=== PATIENT | male | born 1940 | race Caucasian/White ===

== ENCOUNTER 2020-10-04 14:28 | Outpatient (CLI) | payer MEDICARE, SELFPAY | END 2020-10-04 14:29 | disposition home or self-care (01) | LOC: ANHCOVIDVC 14:28 | PROVIDERS: PCP Internal Medicine; Visit Provider Internal Medicine | DX: Z23 Encounter for immunization (principal) | CPT/HCPCS: 0001A; 91300 ==

== ENCOUNTER 2020-10-25 14:27 | Outpatient (CLI) | payer MEDICARE, SELFPAY | END 2020-10-25 14:28 | disposition home or self-care (01) | LOC: ANHCOVIDVC 14:27 | PROVIDERS: PCP Internal Medicine | DX: Z23 Encounter for immunization (principal) | CPT/HCPCS: 0002A; 91300 ==

== ENCOUNTER 2020-11-23 03:55 | Observation (INO) | payer MEDICARE, SELFPAY ==
--- NOTE | ~2020-11-23 | US_ITS ---
EXAMINATION: US renal BI DATE: 11/24/2020 14:54 INDICATION: Bilateral hydronephrosis. TECHNIQUE: Multiple ultrasound grayscale images of the kidneys were obtained. COMPARISON: CT abdomen and pelvis 11/23/2020 FINDINGS: The right kidney measures 9.4 x 6.2 x 4.5 cm. The left kidney measures 12.8 x 4.6 x 4.9 cm. The kidne ys demonstrate normal parenchymal echogenicity. There is a 1.3 cm cyst in left kidney. There is no hy dronephrosis. The bladder is decompressed by a Strickland catheter. The prostate is severely enlarged. IMPRESSION: 1. Normal kidney sizes. No hydronephrosis. 2. Severely enlarged prostate. Reviewed, dictated and finalized at location B.
--- NOTE | ~2020-11-23 | CT_ITS ---
EXAMINATION: CT abdomen pelvis wo con DATE: 11/23/2020 06:11 INDICATION: Hematuria. Leukocytosis. TECHNIQUE: Computed tomography (CT) of the abdomen and pelvis was performed without intravenous contr ast. Automated exposure control and iterative reconstruction technique were employed. Exam dose: 382 .82 mGy-cm total exam DLP. COMPARISON: 11/13/2013 CT abdomen pelvis FINDINGS: Mild bilateral predominantly dependent lower lobe atelectasis. Normal heart size. Mild pericardial effusion. No pleural effusion. There is mild to moderate pneumoperitoneum. The greatest concentration of free air is seen adjacent t o distal small bowel segments in the right lower quadrant there are multiple small bowel diverticula. There is fluid distention and there are air-fluid levels of the proximal to mid small bowel. No abnor mal dilatation of small or large bowel. 1.9 cm and 9 mm left hepatic cysts. At least one or 2 additional much smaller hepatic cysts are sugge sted. The gallbladder is present. No gallbladder wall thickening or pericholecystic fluid or fat stranding. No bile duct or pancreatic duct dilatation. No pancreatic mass lesion, calcification or ductal dilat ation. There are numerous splenic calcified granulomas in one hepatic calcified granuloma, consistent with o ld granulomatous disease. No splenomegaly. Normal morphology of the adrenal glands. 13 mm probable left renal cyst. There is atherosclerotic calcification of the abdominal aorta but no aneurysm. No intraperitoneal or retroperitoneal or pelvic mass lesion or adenopathy or ascites. 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 Status post appendectomy. Extensive diverticulosis of left and right colon; no CT evidence of diverticulitis is detected. There is severe prostate enlargement. There is a Strickland catheter within the evacuated urinary bladder with evidence of bladder wall thickening likely secondary to bladder outlet obstruction. There is ass ociated mild bilateral hydronephrosis without evidence of urinary tract calculi. Mild fat stranding around the bladder may be due to cystitis; clinical correlation is advised. IMPRESSION: Diverticulosis of the small bowel and colon Mild to moderate pneumoperitoneum Hepatic cysts Calcified granulomas of liver and spleen 15 mm probable left renal cysts Status post appendectomy Severe prostate enlargement with associated bladder wall thickening and mild bilateral hydronephrosis There is diffuse osteopenia. There is 4 mm retrolisthesis at L3-4. There is multilevel degenerative d isc disease of lumbar spine, most prominent at L4-5. Reviewed, dictated and finalized at [facility]. Reviewed, dictated and finalized at location A. IMPRESSION: Diverticulosis of the small bowel and colon Mild to moderate pneumoperitoneum Hepatic cysts Calcified granulomas of liver and spleen 15 mm probable left renal cysts Status post appendectomy Severe prostate enlargement with associated bladder wall thickening and mild bi lateral hydronephrosis There is diffuse osteopenia. There is 4 mm retrolisthesis at L3-4. There is mul tilevel degenerative disc disease of lumbar spine, most prominent at L4-5.
[2020-11-23 04:02] VITALS: BP 161/81; PULSE 73; RESP 18; TEMP 36.7; O2SAT 97
--- NOTE | 2020-11-23 04:12 | ED.MALEGU ---
HPI - Male Genitourinary General Chief complaint: Urogenital-Male Stated complaint: Unable to urinate Time Seen by Provider: 11/23/20 03:59 Source: patient Mode of arrival: ambulatory Limitations: no limitations History of Present Illness HPI Narrative: This is an 80 year old male with history of hypertension and hyperlipidemia who presents for evaluation of difficulty urinating. He states he started having dysuria and decreased urination 4 days ago. Last night he started having more difficulty. He last urinated around 9 pm last night, and he states it was very little. He has penile pain , lower abdominal and lower back pain that started tonight. He reports chills with nausea and vomiting yesterday morning. He denies history of an enlarged prostate. He denies similar episodes in the past. Related Data Home Medications Medication Instructions Recorded Confirmed cyanocobalamin (vitamin B-12) 1,000 mcg PO DAILY 07/15/19 07/22/20 1,000 mcg capsule omega 2-jvm-iyp-fish oil 1,000 mg 2 cap PO DAILY cap 07/15/19 07/22/20 (120 mg-180 mg) capsule Allergies Allergy/AdvReac Type Severity Reaction Status Date / Time No Known Allergies Allergy Verified 11/23/20 03:55 Review of Systems Review of Systems: All systems reviewed & are unremarkable except as noted in HPI and below Constitutional: Constitutional: Reports chills Gastrointestinal: Gastrointestinal: Reports abdominal pain, Reports nausea and Reports vomiting Genitourinary: Genitourinary: Denies hematuria, Reports oliguria, Reports dysuria and Reports urinary frequency Musculoskeletal: Musculoskeletal: Reports back pain PMFSH Past Medical History Medical History (Updated 11/23/20 @ 07:30 by Eri Kim MD) Essential (primary) hypertension Mixed hyperlipidemia Surgical History Surgical History (Updated 11/23/20 @ 04:12 by Eri Kim MD) History of appendectomy Family History Family History (Updated 04/01/14 @ 07:13 by DOCTOR UNKNOWN) Mother Cerebrovascular accident Father Family history of coronary artery disease, Onset Age: 87 Social History Social History Smoking status: Never smoker Alcohol intake: never Exam Const: General: no acute distress and alert Eyes: EOM: EOMs intact bilaterally Resp: Effort & Inspection: normal respiratory effort and no retractions Auscultation: clear to auscultation bilaterally Cardio: Rate: regular rate Rhythm: regular rhythm Heart sounds: no murmurs GI: Inspection: distended GI Palp: Yes Soft to palpation, Yes Tenderness to palpation present (GI) (suprapubic) and No Guarding due to palpation present (GI) Auscultation: normal bowel sounds : Penis: Yes circumcised Scrotum: scrotum normal Skin: General skin exam: normal color Rashes: no rashes Course Reevaluation(s) Reevaluation #1: Patient has palm catheter in place. He denies any pain or difficulty. He states he feels better. Patient has elevated wbc so will perform CT to rule out infectious or surgical issue. Date: 11/23/20 Time: 05:52 Consultations Consultation #1: Dr Murdock came down to ER to evaluate patient for possible bowel perforation. He states to have patient admitted to hospitalist with [facility]. They will follow patient as consult. No surgical intervention needed at this time. Date: 11/23/20 Time: 07:27 Consultation #2: I discussed case and Dr. Godwin accepts patient to hospitalist service. Date: 11/23/20 Time: 07:37 Vital Signs Vital signs: Vital Signs Temperature 98.1 F 11/23/20 04:02 Pulse Rate 73 11/23/20 04:02 Respiratory Rate 18 11/23/20 04:02 Blood Pressure 161/81 H 11/23/20 04:02 Pulse Oximetry 97 11/23/20 04:02 Temperature 98.1 F 11/23/20 04:02 Pulse Rate 65 11/23/20 07:12 Respiratory Rate 16 11/23/20 07:12 Blood Pressure 143/68 H 11/23/20 07:12 Pulse Oximetry 100 11/23/20 07:12 [facility] - Male Genitourinary Medical Records Attestation: I
[2020-11-23 04:40] LABS: Basophils Percent Auto 0.3 % (0.2-1.2); Eosinophils Absolute Auto 0.2 K/mm3 (0-0.3); Eosinophils Percent Auto 1.2 % (0-4.4); Hematocrit 43.3 % (42.0-52.0); Hemoglobin 14.2 g/dL (14.0-18.0); Immature Granulocyte Absolute 0.04 K/mm3 (0.00-0.031); Immature Granulocyte Percent A 0.3 % (0-0.5); Lymphocytes Absolute Auto 2.82 K/mm3 (0.9-3.2); Lymphocytes Percent Auto 22.1 % (18.3-44.2); Mean Corpuscular HGB Conc 32.8 g/dl (32-36); Mean Corpuscular Hemoglobin 28.1 pg (26-34); Mean Corpuscular Volume 85.7 fl (80-100); Mean Platelet Volume 11.8 fl (7.4-10.4); Monocytes Absolute Auto 0.6 K/mm3 (0.1-0.6); Monocytes Percent Auto 4.8 % (2.6-8.5); Neutrophils Absolute Auto 9.1 K/mm3 (1.3-6.7); Neutrophils Percent Auto 71.3 % (45.5-73.1); Platelet Count Result 270 k/mm3 (150-375); Red Blood Count 5.05 M/mm3 (4.6-6.20); Red Cell Distribution Width 13.6 % (11.5-14.5); White Blood Count 12.8 K/mm3 (4.5-10.0)
[2020-11-23 04:51] LABS: Alanine Aminotransferase 23 U/L (4-50); Alkaline Phosphatase 81 U/L (38-126); Anion Gap 7 mmol/L (8-16); Aspartate Amino Transferase 29 U/L (17-59); Bilirubin,Total 0.5 mg/dL (0.2-1.3); Blood Urea Nitrogen 18 mg/dL (9-20); Calcium 9.4 mg/dL (8.4-10.2); Carbon Dioxide 28 mmol/L (22-30); Chloride 102 mmol/L (98-107); Estimated CRCL calculation 44 ml/min; Estimated Glomerular Filt Rate 58; Glucose 101 mg/dL (75-110); Sodium 137 mmol/L (137-145)
[2020-11-23 04:52] LABS: Add Urine Microscopic? YES; Appearance Urine Clear (Clear); Bilirubin Urine Negative (Negative); Blood Urine 1+ (Negative); Color Urine Yellow (Yellow); Glucose Urine UA Negative (Negative); Ketones Urine Negative (Negative); Leukocyte Esterase Ur Negative LEU/UL (Negative); Mucus Urine Rare /lpf; Nitrate Urine Negative (Negative); Protein Urine Negative (Negative); Specific Grav Ur 1.013 (1.001-1.035); Urobilinogen Urine Negative mg/dL (<2.0); WBC Urine 0-3 /hpf
[2020-11-23] MEDS: TAMSULOSIN HCL 0.4 MG CAPSULE PO (05:14)
[2020-11-23 07:12] VITALS: BP 143/68; PULSE 65; RESP 16; O2SAT 100
--- NOTE | 2020-11-23 07:15 | PC.NURSE ---
Took over care of pt at this time.
[2020-11-23 09:10] VITALS: BP 138/78; PULSE 62; RESP 18; TEMP 36.7; O2SAT 97
--- NOTE | 2020-11-23 09:28 | PM.CNGS ---
Assessment and Plan Assessment and plan (1) Pneumoperitoneum of unknown etiology: Code(s): K66.8 - Other specified disorders of peritoneum Status: Acute Assessment and Plan: CT scan reviewed thoroughly with the radiologist this morning. Etiology of his pneumoperitoneum is unclear. There is mild pneumoperitoneum with 3 separate focal areas of free air in the mesenteric fat around small bowel segments. The small bowel appears decompressed in these areas and there is no wall thickening, therefore it is difficult to discern a focal area of pneumatosis or obvious disruption in the small bowel wall. The area of concern on the virtual radiologist reading could be intraluminal or extraluminal gas, rather than focal pneumatosis or a hole in the bowel. He does also have evidence of scattered small and large bowel diverticulum on the CT. Clinically, the patient's abdominal exam is completely benign. He had mild leukocytosis in the setting of his urinary retention. He remains hemodynamically stable this morning. I have discussed the case with Dr. Murdock. We will continue to closely monitor the patient today and continue with broad-spectrum IV antibiotics. We will keep him NPO for now with IV fluids and potentially allow him to try clear liquids later this afternoon if his exam remains benign. Will plan to repeat labs tomorrow morning and monitor him with serial abdominal exams. Thank you for allowing us to see the patient in consultation and we will continue to follow along with you. (2) Acute urinary retention: Code(s): R33.8 - Other retention of urine Status: Acute Assessment and Plan: This is his reason for presentation to the ER. Symptoms resolved after Strickland catheter was placed. Management per hospitalist. (3) Enlarged prostate: Code(s): N40.0 - Benign prostatic hyperplasia without lower urinary tract symptoms Status: Acute Assessment and Plan: May benefit from Flomax. Management per hospitalist. (4) Essential (primary) hypertension: Code(s): I10 - Essential (primary) hypertension Status: Acute Assessment and Plan: Management per hospitalist. Additional Plan I have discussed the patient's case and plan of care with Dr. Murdock. History of Present Illness Consult details Consult date: 11/23/20 Reason for consult: other (Pneumoperitoneum found incidentally on CT) Requesting physician: Eri Kim MD Narrative: This is an 80-year-old male with a history of hypertension, who presented to the emergency department early this morning with difficulty urinating. He reports some dysuria and decreased urination over the past few days. Last night he was unable to urinate and had penile and lower back pain. Therefore, he presented to the ER for evaluation. He reports also 1 episode of vomiting yesterday morning while straining to urinate. Otherwise, he has been tolerating a diet without any nausea or vomiting. In the ER, a Strickland catheter was placed for urinary retention and the patient felt much better. A CT scan of the abdomen and pelvis was performed to rule out infection or surgical issue. This CT incidentally found mild pneumoperitoneum and the virtual radiologist reading suggested regional free air around a segment of small bowel with possible focal wall pneumatosis and possible disruption in the small bowel wall. The patient is hemodynamically stable in the ER and his labs showed a white blood cell count of 12,000 on initial presentation with the urinary retention. Otherwise, labs were unremarkable. Our service was then called by the ED physician and the patient was seen by Dr. Murdock in the ER. He is being admitted to the hospitalist service and was made NPO. He was started on broad-spectrum IV antibiotics. I am now seeing the patient independently on the medical floor. He denies any abdominal pain, bloating, or nausea at this time. He reports flatus and 2 good bowel move
--- NOTE | 2020-11-23 10:27 | ADMGEN ---
This patient, Robin Mcduffie, was admitted to [facility] Surg Room 317-01. Patient/family oriented to hospital policies and general routines including ID bracelet, bed and alarms, visiting hours, pain management, procedures, bathroom and other care routines, personal items, smoking policy, room service/diet, and visiting hours. Information on how to activate the Rapid Response Team has been discussed. Patient/Family are encouraged to report perceived risks to care and to ask questions if they do not understand what they are told or what they should do.
[2020-11-23] MEDS: SODIUM CHLORIDE 0.9% IV 1,000 ML 125 ML IV CONT (11:16)
--- NOTE | 2020-11-23 13:00 | PM.IMHP ---
H&P: HPI History of Present Illness Date/Time: 11/23/20 13:00 Chief Complaint: Difficulties urinating. Narrative: This is a relatively healthy 80-year-old male with with hypertension and hyperlipidemia presented to the emergency department earlier today from home for evaluation of difficulties urinating. About 4 days ago he noticed that he was having the urge to urinate more often but was urinating less urine each time. Last evening he had increasing difficulties urinating, passing only a small amount of urine at approximately 21:00 last night. Since that time he has been unable to urinate and reports discomfort in his low back and suprapubic region. Additionally he has nausea with 1 episode of emesis yesterday morning. His low back in suprapubic discomfort resolved once the Strickland catheter was inserted. He has never had similar episodes in the past. No fever but he had some chills yesterday. No hematuria. No known history of BPH. He has not had any falls or back injuries. Review of Systems Review of Systems: Narrative: Twelve systems were reviewed with pertinent positives and negatives as per HPI. No fever or sweats. Denies recent cold and flu symptoms. No chest pain or shortness of breath. He is not having any abdominal pain at this time. No diarrhea. Weight has remained stable. No history of malignancy. Except as documented, all other systems reviewed and are negative. [facility] Past Medical History Medical History (Updated 11/23/20 @ 14:10 by Sobia Rhodes PA-C) Diverticulitis Essential hypertension Mixed hyperlipidemia Surgical History Surgical History (Updated 11/23/20 @ 21:43 by Sobia Rhodes PA-C) History of appendectomy (~11/2013) Perforated appendicitis with intraabdominal abscess requiring drain. History of facial surgery Reconstruction of numerous fractures sustained in a fall on the ice. History of hemorrhoidectomy Family History Family History Mother Cerebrovascular accident Father Family history of coronary artery disease, Onset Age: 87 Social History Social History (Updated 11/23/20 @ 14:10 by Sobia Rhodes PA-C) Social History: Surrogate decision maker: Francisca Mcduffie, . Code status: Full code. Smoking status: Never smoker Second hand tobacco smoke exposure: No Alcohol intake: never Substance use: never Additional living arrangements comments: Patient lives in [place] with his . Occupation/Education: retired Additional occupation/education comments: Retired from [employer]. Gender identity (if verbalized by the patient): Male Spiritual care concerns: No Meds Home Medications and Allergies Home Medications Medication Instructions Recorded Confirmed Type cyanocobalamin (vitamin B-12) 1,000 mcg PO DAILY 07/15/19 11/23/20 History 1,000 mcg capsule omega 9-nrl-ipy-fish oil 1,000 mg 2 cap PO DAILY cap 07/15/19 11/23/20 History (120 mg-180 mg) capsule amlodipine 5 mg PO DAILY 11/23/20 11/23/20 History pravastatin 40 mg PO DAILY 11/23/20 11/23/20 History Allergies Allergy/AdvReac Type Severity Reaction Status Date / Time No Known Allergies Allergy Verified 11/23/20 03:55 Vital Signs Vital Signs - 24 hr 11/23/20 04:02 11/23/20 07:12 11/23/20 09:10 Temperature 98.1 F 98.0 F Pulse Rate 73 65 62 Respiratory Rate 18 16 18 Blood Pressure 161/81 H 143/68 H 138/78 Pulse Oximetry 97 100 97 Exam Narrative: Exam Narrative: General: Well-developed elderly male sitting up in bed no distress. Weight: 77.11 kilograms. BMI: 24.4. HEENT: Normocephalic, atraumatic. PERRL, EOMI. Sclerae anicteric. Oral mucosa moist. Oropharynx clear. Neck: Supple. Respiratory: Lungs are clear to auscultation bilaterally. Cardiovascular: Regular rate and rhythm with S1-S2. Gastrointestinal: Abdomen is soft, nontender, and nondistended with positive bow
[2020-11-23 14:00] VITALS: BP 120/71; PULSE 66; RESP 16; TEMP 37.1; O2SAT 92
[2020-11-23 21:40] VITALS: BP 128/81; PULSE 92; RESP 18; TEMP 37.2; O2SAT 93
[2020-11-24 05:38] VITALS: BP 102/57; PULSE 58; RESP 18; TEMP 36.7; O2SAT 92
[2020-11-24 06:10] LABS: Basophils Percent Auto 0.4 % (0.2-1.2); Eosinophils Absolute Auto 0.3 K/mm3 (0-0.3); Eosinophils Percent Auto 2.8 % (0-4.4); Hemoglobin 12.5 g/dL (14.0-18.0); Immature Granulocyte Absolute 0.03 K/mm3 (0.00-0.031); Immature Granulocyte Percent A 0.3 % (0-0.5); Lymphocytes Absolute Auto 2.82 K/mm3 (0.9-3.2); Lymphocytes Percent Auto 28.1 % (18.3-44.2); Mean Corpuscular HGB Conc 32.1 g/dl (32-36); Mean Corpuscular Hemoglobin 28.5 pg (26-34); Mean Platelet Volume 12.2 fl (7.4-10.4); Monocytes Absolute Auto 0.7 K/mm3 (0.1-0.6); Monocytes Percent Auto 6.8 % (2.6-8.5); Neutrophils Absolute Auto 6.2 K/mm3 (1.3-6.7); Neutrophils Percent Auto 61.6 % (45.5-73.1); Platelet Count Result 243 k/mm3 (150-375); Red Blood Count 4.38 M/mm3 (4.6-6.20); Red Cell Distribution Width 14.3 % (11.5-14.5)
[2020-11-24 06:33] LABS: Alanine Aminotransferase 17 U/L (4-50); Albumin Level 3.3 g/dL (3.5-5.1); Alkaline Phosphatase 61 U/L (38-126); Anion Gap 3 mmol/L (8-16); Aspartate Amino Transferase 21 U/L (17-59); Bilirubin,Total 0.4 mg/dL (0.2-1.3); Blood Urea Nitrogen 18 mg/dL (9-20); Calcium 8.3 mg/dL (8.4-10.2); Carbon Dioxide 29 mmol/L (22-30); Chloride 110 mmol/L (98-107); Estimated CRCL calculation 58 ml/min; Estimated Glomerular Filt Rate > 60; Glucose 99 mg/dL (75-110); Magnesium 1.9 mg/dL (1.6-2.3); Sodium 142 mmol/L (137-145)
--- NOTE | 2020-11-24 09:29 | PM.PNGS ---
Progress Note: A&P Assessment and Plan (1) Pneumoperitoneum of unknown etiology: Code(s): K66.8 - Other specified disorders of peritoneum Status: Acute Assessment and Plan: Unclear etiology. Patient still not having any abdominal pain and his abdominal exam is benign. WBC 10,000 today. He is tolerating a diet. Okay from a surgical standpoint to discharge the patient when okay with other services. We would recommend another 5 days of oral antibiotics. Follow-up with our service only as needed if having any further issues. (2) Acute urinary retention: Code(s): R33.8 - Other retention of urine Status: Acute Assessment and Plan: Urology consulted. Strickland in place and on Flomax. Additional Plan I have discussed the plan of care with Dr. Murdock. Subjective Subjective Date/Time Seen: 11/24/20 09:29 Patient reports: no new complaints, tolerating a regular diet, flatus and no bowel movement Interval history: P Review of Systems Review of Systems: All systems reviewed & are unremarkable except as noted in HPI and below Constitutional: Constitutional: Denies chills and Denies fever(s) Exam Const: General: no acute distress, alert and awake GI: Inspection: normal to inspection and non-distended GI Palp: Yes Soft to palpation, No Firmness to palpation present (GI), No Tenderness to palpation present (GI), No Rigid due to palpation and No Rebound tenderness present Percussion: Yes normal to percussion Auscultation: normal bowel sounds Neuro: General: moves all extremities and no focal motor deficits Extrem: General: no clubbing, cyanosis or edema Psych: Mental Status: mental status grossly normal Insight: Good insight present (Psych) Judgement: Good judgement present (Psych) Objective Data Vital Signs Vital Signs: Vital Signs - 24 hr 11/23/20 14:00 11/23/20 21:40 11/24/20 05:38 Temperature 98.7 F 98.9 F 98.1 F Pulse Rate 66 92 58 L Respiratory Rate 16 18 18 Blood Pressure 120/71 128/81 102/57 L Pulse Oximetry 92 93 92 Intake/Output Intake/Output: Intake & Output 11/21/20 11/22/20 11/23/20 11/24/20 23:59 23:59 23:59 23:59 Intake Total 1340 390 Output Total 1100 350 Balance 240 40 Meds/Results Medications: Active Medications Generic Name Dose Route Start Last Admin Trade Name Freq PRN Reason Stop Dose Admin Amlodipine Besylate 5 mg 11/24/20 09:00 Amlodipine Besylate 5 Mg Tablet PO DAILY [facility] Cyanocobalamin 1,000 mcg 11/24/20 09:00 Cyanocobalamin 1,000 Mcg Tablet PO DAILY [facility] Fish Oil 2 gm 11/24/20 09:00 [place] 3 Polyunsat Fatty Acids 1 Gm Cap PO DAILY [facility] Piperacillin/Tazobactam/Dextrose 3.375 gm in 50 mls @ 100 mls/hr 11/23/20 12:00 11/24/20 06:24 Zosyn 3.375 Gm/D5w 50ml Pm IVPB Infused Q6H [facility] Infusion Ondansetron HCl 4 mg 11/23/20 07:35 Ondansetron Inj 4 Mg/2 Ml Vial IV PUSH Q4H PRN Nausea Pravastatin Sodium 40 mg 11/24/20 09:00 Pravastatin Sodium 20 Mg Tablet PO DAILY [facility] Tamsulosin HCl 0.4 mg 11/24/20 09:00 Tamsulosin Hcl 0.4 Mg Capsule PO QAM [facility] Radiology Results: ITS Impressions Abdomen/Pelvis CT 11/23/20 07:27 IMPRESSION: Diverticulosis of the small bowel and colon Mild to moderate pneumoperitoneum Hepatic cysts Calcified granulomas of liver and spleen 15 mm probable left renal cysts Status post appendectomy Severe prostate enlargement with associated bladder wall thickening and mild bilateral hydronephrosis There is diffuse osteopenia. There is 4 mm retrolisthesis at L3-4. There is multilevel degenerative disc disease of lumbar spine, most prominent at L4-5. Labs Labs: Laboratory Results - last 24 hr 11/24/20 11/24/20 05:42 05:42 WBC 10.0 RBC 4.38 L Hgb 12.5 L Hct 39.0 L MCV 89.0 MCH 28.5 MCHC 32.1 RDW 14.3 Plt Count 243 MPV 12.2 H Immature Gran % (Auto) 0.3 Neut % (Auto) 6
[2020-11-24] MEDS: amLODIPine BESYLATE 5 MG TABLET PO (09:36)
[2020-11-24] MEDS: TAMSULOSIN HCL 0.4 MG CAPSULE PO (09:37)
[2020-11-24] MEDS: PRAVASTATIN SODIUM 20 MG TABLET 40 MG PO (09:37)
[2020-11-24] MEDS: CYANOCOBALAMIN 1,000 MCG TABLET 1000 MCG PO (09:37)
[2020-11-24] MEDS: OMEGA 3 POLYUNSAT FATTY ACIDS 1 GM CAP 2 GM PO (09:37)
[2020-11-24 09:48] VITALS: O2SAT 95
--- NOTE | 2020-11-24 12:34 | WPDURCON ---
Assessment and Plan Assessment and plan (1) Urinary retention: Code(s): R33.9 - Retention of urine, unspecified Status: Acute Assessment and Plan: Keep palm catheter in for 7-10 days post op, then follow up for a voiding trial and catheter removal. (2) Enlarged prostate: Code(s): N40.0 - Benign prostatic hyperplasia without lower urinary tract symptoms Status: Acute Assessment and Plan: Continue Tamsulosin. No further evaluation needed at this time. (3) Hydronephrosis: Code(s): N13.30 - Unspecified hydronephrosis Status: Acute Assessment and Plan: Will obtain a JASS to ensure hydro has resolved. Urology Consult Note HPI Date Seen: 11/24/20 Requesting Physician: Riddhi Godwin MD Primary Care Provider: Jared Wilkerson DO Consult Narrative Narrative: Robin Mcduffie is a 80 year old male who presented to the ER yesterday with c/o difficulty with urination. He states he has never had any urinary problems in the past or infections. He has never been treated for BPH, OAB or UTI's. He states that two days ago his stream started to slow down, he developed hesitancy and frequency. He denies urgency, dysuria, hematuria or flank pain. He was uncomfortable prior to catheter insertion, but is now feeling much better. A significant amount of urine was removed from his bladder in the ER upon catheter insertion, but the exact amount is unknown. He was then started on Tamsulosin. His WBC is normal at 10.0, creatinine is normal at 0.90, UA is normal, however his CT from yesterday upon admission shows 15 mm probable left renal cysts and severe prostate enlargement with associated bladder wall thickening and mild bilateral hydronephrosis. Review of Systems Cardiovascular: Cardiovascular: Denies chest pain Respiratory: Respiratory: Reports no additional respiratory complaints Gastrointestinal: Gastrointestinal: Denies abdominal pain, Denies nausea and Denies vomiting Genitourinary: Genitourinary: Denies dysuria, Denies flank pain, Reports urinary frequency, Reports urinary hesitancy, Denies urinary incontinence and Denies urinary urgency PMF Past Medical History Medical History Diverticulitis Essential hypertension Mixed hyperlipidemia Surgical History Surgical History History of appendectomy (~11/2013) Perforated appendicitis with intraabdominal abscess requiring drain. History of facial surgery Reconstruction of numerous fractures sustained in a fall on the ice. History of hemorrhoidectomy Family History Family History Mother Cerebrovascular accident Father Family history of coronary artery disease, Onset Age: 87 Social History Social History Social History: Surrogate decision maker: Francisca Mcduffie, . Code status: Full code. Smoking status: Never smoker Second hand tobacco smoke exposure: No Alcohol intake: never Substance use: never Additional living arrangements comments: Patient lives in [place] with his . Occupation/Education: retired Additional occupation/education comments: Retired from [employer]. Gender identity (if verbalized by the patient): Male Spiritual care concerns: No Meds Home Medications and Allergies Home Medications Medication Instructions Recorded Confirmed Type cyanocobalamin (vitamin B-12) 1,000 mcg PO DAILY 07/15/19 11/23/20 History 1,000 mcg capsule omega 6-kdo-tcu-fish oil 1,000 mg 2 cap PO DAILY cap 07/15/19 11/23/20 History (120 mg-180 mg) capsule amlodipine 5 mg PO DAILY 11/23/20 11/23/20 History pravastatin 40 mg PO DAILY 11/23/20 11/23/20 History Allergies Allergy/AdvReac Type Severity Reaction Status Date / Time No Known Allergie
--- NOTE | 2020-11-24 12:57 | PM.DS ---
DS: Admitting Diagnosis Admitting Diagnosis Admitting Diagnosis: Difficulties urinating. DS: Discharge Diagnosis Discharge Diagnosis (1) Urinary retention: Code(s): R33.9 - Retention of urine, unspecified Status: Acute Assessment and Plan: Secondary to severely enlarged prostate. Pt had palm catheter inserted in ED. Continue Palm at home. Start tamsulosin. Urology consulted for further recommendations and follow up as outpatient. (2) Pneumoperitoneum of unknown etiology: Code(s): K66.8 - Other specified disorders of peritoneum Status: Acute Assessment and Plan: Mild to moderate pneumoperitoneum noted on CT today. Abdominal exam is benign and etiology is not clear. Surgery has been consulted and they recommend empiric antibiotics, no further surgery intervention necessary, pt can be dischraged to oral Augmentin for 10 days. (3) Essential hypertension: Code(s): I10 - Essential (primary) hypertension Status: Acute Assessment and Plan: Continue antihypertensives (4) Mixed hyperlipidemia: Code(s): E78.2 - Mixed hyperlipidemia Status: Acute Assessment and Plan: Continue statin. (5) Enlarged prostate: Code(s): N40.0 - Benign prostatic hyperplasia without lower urinary tract symptoms Status: Acute Assessment and Plan: Severely enlarged prostate noted on imaging today. There also changes of bladder wall thickening and mild bilateral hydronephrosis likely due to chronic outlet obstruction. US was repeated before discharge which showed normal kidney size and no hydronephrosis. With severely enlarged prostate. DS: Summary Hospital Course Hospital Course: This is a relatively healthy 80-year-old male with with hypertension and hyperlipidemia presented to the emergency department earlier today from home for evaluation of difficulties urinating. Pt had palm catheter passed in ED, pt was found to have pneumoperitoneum which was not for surgery and can be treated with augmentin. Time Spent with Patient Time attestation: Total time spent providing and/or coordinating discharge services:40 minutes on day of dischrage Exam Narrative: Exam Narrative: General: Well-developed elderly male sitting up in bed no distress. Respiratory: Lungs are clear to auscultation bilaterally. Cardiovascular: Regular rate and rhythm with S1-S2. Gastrointestinal: Abdomen is soft, nontender, with positive bowel sounds Genitourinary: Palm catheter in situ Skin: Warm and dry. Extremities: No cyanosis, clubbing, or edema. Radial and pedal pulses intact. Neurological: Alert. Cranial nerves 2-12 are grossly intact. No gross focal deficits to casual conversation. Psychiatric: Pleasant and cooperative with normal mood and affect. Judgment and insight intact. DS: Data Data Completed and Pending Labs on day of discharge: Labs from last 24 hours 11/24/20 11/24/20 05:42 05:42 WBC 10.0 RBC 4.38 L Hgb 12.5 L Hct 39.0 L MCV 89.0 MCH 28.5 MCHC 32.1 RDW 14.3 Plt Count 243 MPV 12.2 H Immature Gran % (Auto) 0.3 Neut % (Auto) 61.6 Lymph % (Auto) 28.1 [place] % (Auto) 6.8 Eos % (Auto) 2.8 Baso % (Auto) 0.4 Lymph # (Auto) 2.82 [place] # (Auto) 0.7 H Eos # (Auto) 0.3 Baso # (Auto) 0.0 Abs Immat Gran (auto) 0.03 Absolute Neuts (auto) 6.2 Absolute Nucleated RBC 0.0 Nucleated RBC % 0.0 Sodium 142 Potassium 4.0 Chloride 110 H Carbon Dioxide 29 Anion Gap 3 L BUN 18 Creatinine 0.90 Estim Creat Clear Calc 58 Estimated GFR > 60 Glucose 99 Calcium 8.3 L Magnesium 1.9 Total Bilirubin 0.4 AST 21 ALT 17 Alkaline Phosphatase 61 Total Protein 6.0 L Albumin 3.3 L Discharge Plan Discharge Attending physician on discharge: Riddhi Godwin Consulting providers: Boston Murdock ; Fanny Max ; Erinn Arriaga ; Sobia Rhodes ; Krishna Whyte
[2020-11-24 14:00] VITALS: BP 127/81; PULSE 82; RESP 16; TEMP 36.6; O2SAT 95
== END 2020-11-24 17:00 | disposition home or self-care (01) ==
LOC: ANHED 07:30 → ANH3MEDSUR 08:10
PROVIDERS: Admitting Provider Family Medicine; Emergency Provider General Practice; PCP Internal Medicine; Visit Provider Family Medicine
DX: R33.8 Other retention of urine (principal); K66.8 Other specified disorders of peritoneum; N40.0 Benign prostatic hyperplasia without lower urinary tract symptoms; N13.30 Unspecified hydronephrosis; I10 Essential (primary) hypertension; E78.2 Mixed hyperlipidemia; M85.88 Other specified disorders of bone density and structure, other site
CPT/HCPCS: 36415; 51702; 74176; 76775; 80053; 81001; 83735; 85025; 96361; 96365; 96366; 99285; A9270; G0378; J2543; J7030

== ENCOUNTER 2020-12-20 11:35 | Outpatient (CLI) | payer MEDICARE, SELFPAY ==
--- NOTE | ~2020-12-20 | XR_ITS ---
EXAMINATION: XR abdomen obstructive series EXAM DATE: 12/20/2020 11:54 INDICATION: Benign nodular prostatic hyperplasia with urinary tract symptoms. Free intraperitoneal ai r on prior CT. TECHNIQUE: Frontal upright projection of the upper abdomen, frontal projection of the lower abdomen f or interpretation. Left lateral decubitus projection. Correlation is made to CT 11/23/2020. FINDINGS: There is a radiodense catheter projecting over the bladder. There is large amount of gas wi thin normal calibered small bowel, no obstruction suspected. There is moderate amount of colonic stoo l and gas. Nonspecific bowel gas pattern. No free intraperitoneal air. Lung bases unremarkable. There are bony degenerative changes. IMPRESSION: 1. Large amount of bowel gas, but normal bowel caliber. Nonspecific bowel gas pattern. 2. No free air. Reviewed, dictated and finalized at location A.
== END 2020-12-20 11:36 | disposition home or self-care (01) ==
LOC: ANHIMG 11:39
PROVIDERS: PCP Internal Medicine; Visit Provider Urology
DX: N40.1 Benign prostatic hyperplasia with lower urinary tract symptoms (principal)
CPT/HCPCS: 74019

== ENCOUNTER 2020-12-25 14:41 | Emergency (ER) | payer MEDICARE, SELFPAY ==
[2020-12-25 14:52] VITALS: BP 135/51; PULSE 95; RESP 20; TEMP 36.2; O2SAT 98
--- NOTE | 2020-12-25 15:27 | PC.NURSE ---
Irrigated palm with 50 ml normal saline. Palm flushes easily with immediate return of urine in bag.
--- NOTE | 2020-12-25 15:27 | ED.MALEGU ---
HPI - Male Genitourinary General Chief complaint: Urogenital-Male Stated complaint: Strickland catheter leaking Time Seen by Provider: 12/25/20 15:21 History of Present Illness HPI Narrative: Patient is an 80-year-old male who presents ER with a Strickland complication. He had a catheter placed several weeks back due to enlarged prostate with urinary retention. He is scheduled to have the Strickland removed in couple days. Reports urine drained normally overnight and throughout the day. He then changed his bag and he stopped emptying his bladder. He then started having leaking around the catheter that caused his pajamas become wet. No lower abdominal pain/fever/chills/sweats. No additional concerns other than the Strickland leaking. Related Data Home Medications Medication Instructions Recorded Confirmed cyanocobalamin (vitamin B-12) 1,000 mcg PO DAILY 07/15/19 11/23/20 1,000 mcg capsule omega 3-ljk-oqo-fish oil 1,000 mg 2 cap PO DAILY cap 07/15/19 11/23/20 (120 mg-180 mg) capsule amlodipine 5 mg PO DAILY 11/23/20 11/23/20 pravastatin 40 mg PO DAILY 11/23/20 11/23/20 Allergies Allergy/AdvReac Type Severity Reaction Status Date / Time No Known Allergies Allergy Verified 11/23/20 03:55 Review of Systems Constitutional: Constitutional: Denies chills and Denies fever(s) Gastrointestinal: Gastrointestinal: Denies nausea and Denies vomiting Genitourinary: Genitourinary: Denies hematuria, Reports oliguria, Denies dysuria and Denies urinary frequency PMF Past Medical History Medical History Diverticulitis Essential hypertension Mixed hyperlipidemia Surgical History Surgical History History of appendectomy (~11/2013) Perforated appendicitis with intraabdominal abscess requiring drain. History of facial surgery Reconstruction of numerous fractures sustained in a fall on the ice. History of hemorrhoidectomy Family History Family History Mother Cerebrovascular accident Father Family history of coronary artery disease, Onset Age: 87 Social History Social History (Reviewed 11/24/20 @ 12:37 by YUNIOR Fenton Social History: Surrogate decision maker: Francisca Mcduffie, . Code status: Full code. Smoking status: Never smoker Second hand tobacco smoke exposure: No Alcohol intake: never Substance use: never Additional living arrangements comments: Patient lives in [place] with his . Additional occupation/education comments: Retired from [employer]. Gender identity (if verbalized by the patient): Male Spiritual care concerns: No Exam Narrative: Exam Narrative: GENERAL: Well-appearing, well-nourished, and in no acute distress. HEAD: Normocephalic, atraumatic. ABDOMEN: Soft, nontender, nondistended. : Normal-appearing penis with Strickland catheter coming from the urethra. EXTREMITIES: Normal range of motion. No edema. NEURO: Alert and oriented x3. PSYCH: Normal mood and affect. Course Course Emergency Course: Nursing staff irrigated the lumen of the Strickland which apparently dislodged some sediment and urine drained freely after this. Discharge home. Vital Signs Vital signs: Vital Signs Temperature 97.1 F L 12/25/20 14:52 Pulse Rate 95 12/25/20 14:52 Respiratory Rate 20 12/25/20 14:52 Blood Pressure 135/51 L 12/25/20 14:52 Pulse Oximetry 98 12/25/20 14:52 Temperature 97.1 F L 12/25/20 14:52 Pulse Rate 95 12/25/20 14:52 Respiratory Rate 20 12/25/20 14:52 Blood Pressure 135/51 L 12/25/20 14:52 Pulse Oximetry 98 12/25/20 14:52 Discharge Plan Discharge Clinical Impression: Complication of Strickland catheter Patient Disposition: Home, Self-Care Condition: Stable Instructions: Strickland Catheter Placement and Care (ED) Additional Instructions: Return to t
== END 2020-12-25 16:10 | disposition home or self-care (01) ==
LOC: ANHED 15:52
PROVIDERS: Emergency Provider Emergency Medicine; PCP Internal Medicine
DX: T83.091A Other mechanical complication of indwelling urethral catheter, initial encounter (principal); I10 Essential (primary) hypertension; E78.2 Mixed hyperlipidemia; N40.1 Benign prostatic hyperplasia with lower urinary tract symptoms; R33.8 Other retention of urine
CPT/HCPCS: 99282

== ENCOUNTER → 2021-01-16 02:59 | Outpatient (CLI) | payer MEDICARE, SELFPAY ==
[2021-01-16 17:43] LABS: SARS-CoV-2 RNA PCR Negative
== END ==
PROVIDERS: PCP Internal Medicine; Visit Provider Urology
DX: Z01.812 Encounter for preprocedural laboratory examination (principal); Z20.822 Contact with and (suspected) exposure to COVID-19
CPT/HCPCS: C9803; U0003; U0005

== ENCOUNTER 2021-01-16 07:56 | Outpatient (CLI) | payer MEDICARE, SELFPAY ==
--- NOTE | 2021-01-16 08:00 | ECG_ITS ---
Measurements Intervals [place] Rate: 64 P: 65 ID: 167 QRS: 63 QRSD: 90 T: 79 QT: 396 QTc: 410 Interpretive Statements SINUS RHYTHM VENTRICULAR PREMATURE COMPLEX BASELINE ARTIFACT- I, II, III, AVR, AVL, AVF BORDERLINE ECG Electronically Signed On 01-16-2021 8:20:16 CDT by Cedrick Buchanan D.O.
== END 2021-01-16 07:57 | disposition home or self-care (01) ==
PROVIDERS: PCP Internal Medicine; Visit Provider Urology
DX: Z01.810 Encounter for preprocedural cardiovascular examination (principal); I10 Essential (primary) hypertension
CPT/HCPCS: 93005

== ENCOUNTER 2021-01-20 11:16 | Observation (INO) | payer MEDICARE, SELFPAY ==
--- NOTE | 2021-01-09 07:58 | PM.IMHP ---
H&P: HPI History of Present Illness Date/Time: 01/09/21 07:58 Patient with a longstanding history of outlet obstructive voiding symptoms who presented our practice 1st in November 2020 when he had developed urinary retention. He has been on finasteride and tamsulosin and failed several voiding trials. Urodynamic show detrusor pressure of 90 cmH2O. After discussion of options including, but not limited to, ongoing medical therapy, minimally invasive procedure such as Urolift, laser prostatectomy, Rezum, he has elected for a TURP. He is aware of the risk including, but not limited to, persistent urinary retention, urinary incontinence, postoperative hematuria, erectile dysfunction. Chief Complaint: Urinary retention Review of Systems Cardiovascular: Cardiovascular: Denies chest pain, Denies lightheadedness, Denies palpitations and Denies dyspnea Respiratory: Respiratory: Denies dyspnea Gastrointestinal: Gastrointestinal: Denies diarrhea, Denies nausea and Denies vomiting Genitourinary: Genitourinary: Denies hematuria and Denies dysuria Endocrine: Endocrine: Denies palpitations PMFSH Past Medical History Medical History Diverticulitis Essential hypertension Mixed hyperlipidemia Surgical History Surgical History History of appendectomy (~11/2013) Perforated appendicitis with intraabdominal abscess requiring drain. History of facial surgery Reconstruction of numerous fractures sustained in a fall on the ice. History of hemorrhoidectomy Family History Family History Mother Cerebrovascular accident Father Family history of coronary artery disease, Onset Age: 87 Social History Social History Social History: Surrogate decision maker: Francisca Mcduffie, . Code status: Full code. Smoking status: Never smoker Second hand tobacco smoke exposure: No Alcohol intake: never Substance use: never Additional living arrangements comments: Patient lives in [place] with his . Additional occupation/education comments: Retired from [employer]. Gender identity (if verbalized by the patient): Male Spiritual care concerns: No Meds Home Medications and Allergies Home Medications Medication Instructions Recorded Confirmed Type cyanocobalamin (vitamin B-12) 1,000 mcg PO DAILY 07/15/19 11/23/20 History 1,000 mcg capsule omega 7-mze-ehn-fish oil 1,000 mg 2 cap PO DAILY cap 07/15/19 11/23/20 History (120 mg-180 mg) capsule amlodipine 5 mg PO DAILY 11/23/20 11/23/20 History pravastatin 40 mg PO DAILY 11/23/20 11/23/20 History amoxicillin-pot clavulanate 1 tablet PO Q8H #30 tablet 11/24/20 Rx [Augmentin] tamsulosin 0.4 mg PO QAM #30 cap 11/24/20 Rx Allergies Allergy/AdvReac Type Severity Reaction Status Date / Time No Known Allergies Allergy Verified 11/23/20 03:55 Exam Const: General: no acute distress Resp: Effort & Inspection: normal respiratory effort GI: Inspection: non-distended GI Palp: No abdominal tenderness and No Guarding due to palpation present (GI) Auscultation: normal bowel sounds Assessment and Plan Assessment and plan (1) Urinary retention: Code(s): R33.9 - Retention of urine, unspecified Status: Acute (2) BPH loc w urin obs/LUTS: Code(s): N40.1 - Benign prostatic hyperplasia with lower urinary tract symptoms Status: Acute Assessment and Plan: TURP
[2021-01-09 10:24] VITALS: BMI 24.3
--- NOTE | 2021-01-18 09:54 | WPDANESEPPF ---
Anes - Initial Pre Proc Eval Procedure: Operation Date: 01/19/21 12:15 Proposed Procedures p Trans Urethral Resection Prostate - Regino Hinds MD Date/Time: 01/18/21 09:54 Surgeon: Regino Hinds MD Pre Op Diagnosis: Retention ,bph Patient Data Age: 80 Gender: M Height: 1.7 m Weight: 70.45 kg Allergies Allergy/AdvReac Type Severity Reaction Status Date / Time No Known Allergies Allergy Verified 01/09/21 10:15 Home Medications Medication Instructions Recorded Confirmed Type cyanocobalamin (vitamin B-12) 1,000 mcg PO QAM 07/15/19 01/09/21 History 1,000 mcg capsule omega 6-tsu-fpo-fish oil 1,000 mg 1 cap PO QAM cap 07/15/19 01/09/21 History (120 mg-180 mg) capsule amlodipine 5 mg PO DAILY 11/23/20 01/19/21 History pravastatin 40 mg PO QAM 11/23/20 01/19/21 History tamsulosin 0.4 mg PO QAM #30 cap 11/24/20 01/19/21 Rx ascorbic acid (vitamin C) [Vitamin 1 g PO DAILY 01/09/21 01/19/21 History C] aspirin [Aspir-81] 81 mg PO QAM 01/09/21 01/19/21 History calcium carbonate [Calcium 600] 600 mg PO DAILY 01/09/21 01/09/21 History cholecalciferol (vitamin D3) 125 mcg PO QAM 01/09/21 01/09/21 History finasteride 5 mg PO QAM 01/09/21 01/19/21 History dzoxtbexlrrf-vprkjkhu-wncodb 1 tablet PO DAILY 01/09/21 01/09/21 History [Multi-Raffi 50 and Over] zinc 50 mg PO DAILY 01/09/21 01/09/21 History Patient hx anesthesia problems: none Family hx anesthesia problems: none PMFSH Past Medical History Medical History Diverticulitis Essential hypertension Mixed hyperlipidemia Surgical History Surgical History History of appendectomy (~11/2013) Perforated appendicitis with intraabdominal abscess requiring drain. History of facial surgery Reconstruction of numerous fractures sustained in a fall on the ice. History of hemorrhoidectomy Family History Family History Mother Cerebrovascular accident Father Family history of coronary artery disease, Onset Age: 87 Social History Social History Social History: Surrogate decision maker: Francisca Mcduffie, . Code status: Full code. Smoking status: Never smoker Second hand tobacco smoke exposure: No Alcohol intake: never Substance use: never Substance use type: does not use Living arrangements: with family Additional living arrangements comments: Patient lives in [place] with his . Additional occupation/education comments: Retired from [employer]. Gender identity (if verbalized by the patient): Male Spiritual care concerns: No Anes - Eval Final PreProcedure Day of Procedure 01/18/21 09:54 Patient weight: normal Heart: regular rate and rhythm Lungs: clear to auscultation and normal air movement Airway: Mallampati scale class II Neurological: alert and oriented Last oral intake: >/= 8 hours ASA classification: II Emergent: no Anesthetic plan: proceed Anesthesia type and monitoring: general LMA Informed Consent: The patient's anesthetic plan and its attendant risks and benefits were discussed with the patient/family/POA. Questions were solicited and answers provided to the satisfaction of the patient/family/POA.
[2021-01-19] VITALS (13 sets, daily range): BP systolic 103–166; BP diastolic 55–90; PULSE 62–86; RESP 13–18; TEMP 35.9–36.4; O2SAT 95–100
--- NOTE | 2021-01-19 06:14 | WPDHPUPDATE1 ---
History and Physical Update Update Date/Time: 01/19/21 06:14 History and Physical has been reviewed, including an updated exam of the patient. There are NO changes in the patient's condition. Risks, benefits, and alternatives have been discussed and questions answered. Patient agrees to proceed with procedure.
[2021-01-19] MEDS: LACTATED RINGERS 1,000 ML 30 ML IV CONT ×2 (10:35→14:29)
[2021-01-19] MEDS: ceFAZolin 2 GM/D5W 50 ML 2 GM/50 ML BAG IVPB (12:37)
--- NOTE | 2021-01-19 14:04 | P.OP_ITS ---
Procedure Note - Detailed Date of Procedure 01/19/21 Pre-op Diagnosis Retention ,bph Post-op Diagnosis same Procedure Performed TURP Surgeon Regino Hinds MD Retail Marketing Manager None Anesthesia general Indications Urinary retention due to BPH Findings Tri-lobar prostate hyperplasia Description of Procedure The patient was brought to the operative suite where he is prepped and draped in routine sterile fashion while in the dorsal lithotomy position after the uneventful induction of a [general LMA/spinal] anesthetic. A 27 Green[place]ic resectoscope sheath was placed into his bladder. He had no urethral strictures. The patient had [trilobar/bilobar] hyperplasia with a [small/moderate/large] median lobe. The bladder itself was endoscopically normal, showing no mucosal hyperemia, intravesical neoplasm or foreign bodies. There was a single, orthotopic ureteral orifice bilaterally. These orifices were identified and preserved throughout the remainder of the procedure. Attention was first turned to resection of the median lobe. This resection was undertaken from the bladder neck to the verumontanum and carried out until the transverse fibers of the bladder neck were identified. The left lateral lobe was then resected starting at the 6 o'clock position, working counter clockwise to the 12 o'clock position. Again, resection was carried out from the bladder neck to the verumontanum until the capsular fibers of the prostate were identified. The right lateral lobe was resected in a similar fashion starting at the 6 o'clock position working clockwise to the 12 o'clock position and carried out until the capsular fibers of the prostate were identified. Apical tissue was then circumferentially resected. All chips were evacuated from the bladder using an [employer] evacuator. Hemostasis was obtained with electric cautery. The ureteral orifices were again inspected and found to be without injury. Estimated blood loss throughout this procedure was []cc. The patient was taken to recovery room having tolerated this well. Estimated Blood Loss 100 Drains Yes (24F hematuria catheter) Packing No Pathology yes Complications No immediate complications Condition stable Disposition PACU
--- NOTE | 2021-01-19 15:30 | ADMGEN ---
This patient, Robin Mcduffie, was admitted to -. Patient/family oriented to hospital policies and general routines including ID bracelet, bed and alarms, visiting hours, pain management, procedures, bathroom and other care routines, personal items, smoking policy, room service/diet, and visiting hours. Information on how to activate the Rapid Response Team has been discussed. Patient/Family are encouraged to report perceived risks to care and to ask questions if they do not understand what they are told or what they should do.
[2021-01-19] MEDS: DEXTROSE 5%/LACTATED RINGERS 1,000 ML 125 ML IV CONT (17:03)
[2021-01-19] MEDS: DOCUSATE SODIUM 100 MG CAPSULE PO (17:04)
--- NOTE | 2021-01-19 18:00 | PC.NURSE ---
Patient's CBI noted to have stopped flowing. Patient states he is having slight discomfort and pressure in lower abdomen. Irrigated 3way catheter multiple times and noted several small blood clots and return of red urine. CBI fluid still would not flow. Irrigated multiple times, sometimes easily and sometimes with more difficulty, but no flow noted from CBI. Patient having c/o bladder spasms and pain/pressure to lower abdomen. CBI reconnected and some bloody urine noted to be flowing through catheter but CBI still not flowing. Gave patient Levsin for bladder spasms along with Morphine 2 mg IVP. Call out to Dr. Mxa (river expedition guide for Dr. Hinds). Notified him of situation. He states he will review records and return call.
[2021-01-19] MEDS: HYOSCYAMINE SULFATE 0.125 MG TABLET SUBLINGUAL (18:36)
[2021-01-19] MEDS: MORPHINE SULFATE (*CRX) 2 MG/ML INJ IV PUSH (18:37)
--- NOTE | 2021-01-19 18:45 | PC.NURSE ---
Received call back from Dr. Hinds. Dr. Hinds states to irrigate the intake port for the CBI fluid - with normal saline. Irrigated port with 40 cc normal saline. CBI began flowing at a wide open rate without difficulty. Urine now light to dark pink and small clots noted in tubing. 1929 - Received follow up call from Dr. Hinds. Notified Dr. Hinds that CBI is now flowing without difficulty.
[2021-01-20 01:16] VITALS: BP 100/47; PULSE 59; RESP 16; TEMP 36.2; O2SAT 98
[2021-01-20 05:16] VITALS: BP 100/51; PULSE 69; RESP 16; TEMP 36.1; O2SAT 96
[2021-01-20 05:49] LABS: Hematocrit 29.1 % (42.0-52.0); Hemoglobin 9.1 g/dL (14.0-18.0)
[2021-01-20 05:59] LABS: Blood Urea Nitrogen 16 mg/dL (9-20); Calcium 8.1 mg/dL (8.4-10.2); Carbon Dioxide 30 mmol/L (22-30); Estimated CRCL calculation 48 ml/min; Estimated Glomerular Filt Rate > 60; Glucose 110 mg/dL (75-110)
[2021-01-20 06:10] LABS: Anion Gap 2 mmol/L (8-16); Chloride 106 mmol/L (98-107); Potassium 4.6 mmol/L (3.4-5.0); Sodium 138 mmol/L (137-145)
[2021-01-20] MEDS: PRAVASTATIN SODIUM 20 MG TABLET 40 MG PO (07:59)
[2021-01-20] MEDS: DOCUSATE SODIUM 100 MG CAPSULE PO ×2 (07:59→17:52)
[2021-01-20 09:16] VITALS: BP 110/50; PULSE 61; RESP 16; TEMP 36.4; O2SAT 95
--- NOTE | 2021-01-20 09:24 | WPDUROPN2 ---
Progress Note: A&P Assessment and Plan (1) BPH loc w urin obs/LUTS: Code(s): N40.1 - Benign prostatic hyperplasia with lower urinary tract symptoms Status: Acute Assessment and Plan: Doing well POD #1 TURP. Voiding trial later today/tomorrow morning if urine remains clear off CBI. Subjective Subjective Date/Time Seen: 01/20/21 09:24 Comfortable, tolerating diet. Urine pink on slow CBI. Review of Systems Cardiovascular: Cardiovascular: Denies chest pain, Denies lightheadedness, Denies palpitations and Denies dyspnea Respiratory: Respiratory: Denies dyspnea Gastrointestinal: Gastrointestinal: Denies diarrhea, Denies nausea and Denies vomiting Genitourinary: Genitourinary: Denies hematuria and Denies dysuria Endocrine: Endocrine: Denies palpitations Exam Const: General: no acute distress Resp: Effort & Inspection: normal respiratory effort GI: Inspection: non-distended GI Palp: No abdominal tenderness and No Guarding due to palpation present (GI) Auscultation: normal bowel sounds Objective Data Vital Signs Vital Signs: Vital Signs - 24 hr 01/19/21 10:27 01/19/21 13:51 01/19/21 14:05 Temperature 97.1 F L 97.3 F L Pulse Rate 71 72 71 Respiratory Rate 18 14 14 Blood Pressure 153/72 H 140/90 155/83 H Pulse Oximetry 99 99 100 01/19/21 14:20 01/19/21 14:35 01/19/21 14:50 Temperature Pulse Rate 68 73 63 Respiratory Rate 16 14 13 Blood Pressure 166/80 H 160/81 H 151/80 H Pulse Oximetry 100 97 97 01/19/21 15:05 01/19/21 15:20 01/19/21 15:50 Temperature 96.6 F L Pulse Rate 62 73 70 Respiratory Rate 16 15 14 Blood Pressure 153/84 H 135/80 139/63 Pulse Oximetry 96 96 97 01/19/21 16:05 01/19/21 16:20 01/19/21 16:50 Temperature 97.0 F L 97.0 F L 97.1 F L Pulse Rate 69 70 72 Respiratory Rate 14 14 14 Blood Pressure 138/74 129/72 119/70 Pulse Oximetry 97 97 99 01/19/21 21:16 01/20/21 01:16 01/20/21 05:16 Temperature 97.5 F L 97.2 F L 97 F L Pulse Rate 86 59 L 69 Respiratory Rate 16 16 16 Blood Pressure 103/55 L 100/47 L 100/51 L Pulse Oximetry 95 98 96 Intake/Output Intake/Output: Intake & Output 01/17/21 01/18/21 01/19/21 01/20/21 23:59 23:59 23:59 23:59 Intake Total 1280 1290 Output Total 8550 550 Balance -7270 740 Meds/Results Medications: Active Medications Generic Name Dose Route Start Last Admin Trade Name Freq PRN Reason Stop Dose Admin Hydrocodone Bitart/Acetaminophen 1 tab 01/19/21 15:31 Hydrocodone/Acetaminophen (*Crx) 5-325 Mg Tablet PO Q4H PRN Pain Rated 1-6 Amlodipine Besylate 5 mg 01/20/21 09:00 Amlodipine Besylate 5 Mg Tablet PO DAILY [facility] Cephalexin HCl 500 mg 01/20/21 13:00 Cephalexin 500 Mg Capsule PO QID [facility] Docusate Sodium 100 mg 01/19/21 17:00 01/20/21 07:59 Docusate Sodium 100 Mg Capsule PO 100 mg BID [facility] Administration Hyoscyamine 0.125 mg 01/19/21 15:31 01/19/21 18:36 Hyoscyamine Sulfate 0.125 Mg Tablet SUBLINGUAL 0.125 mg Q6H PRN Administration Bladder Spasm Morphine Sulfate 2 mg 01/19/21 15:31 01/19/21 18:37 Morphine Sulfate (*Crx) 2 Mg/Ml Inj IV PUSH 2 mg Q2H PRN Administration Pain Rated 7-10 Naloxone HCl 0.1 mg 01/19/21 15:31 Naloxone Hcl 0.4 Mg/Ml Vial IV PUSH Q2M PRN Opiate Reversal Ondansetron HCl 4 mg 01/19/21 15:31 Ondansetron Inj 4 Mg/2 Ml Vial IV PUSH Q12H PRN Nausea And Vomiting Pravastatin Sodium 40 mg 01/20/21 09:00 01/20/21 07:59 Pravastatin Sodium 20 Mg Tablet PO 40 mg QAM MYRTLE Administration Labs Labs: Laboratory Results - last 24 hr 01/20/21 01/20/21 05:38 05:38 Hgb 9.1 L D Hct 29.1 L Sodium 138 Potassium 4.6 Chloride 106 Carbon Dioxide 30 Anion Gap 2 L BUN 16 Creatinine 1.00 Estim Creat Clear Calc 48 Estimated GFR > 60 Glucose 110 Calcium 8.1 L
[2021-01-20 12:17] VITALS: BMI 23.6
[2021-01-20 13:16] VITALS: BP 112/52; PULSE 60; RESP 16; TEMP 36.4; O2SAT 95
[2021-01-20] MEDS: CEPHALEXIN 500 MG CAPSULE PO ×3 (14:38→20:20)
[2021-01-20 17:16] VITALS: BP 114/60; PULSE 60; RESP 16; TEMP 36.4; O2SAT 94
[2021-01-20 20:33] VITALS: BP 115/55; PULSE 86; RESP 18; TEMP 36.8; O2SAT 99
[2021-01-21 04:35] VITALS: BP 102/48; PULSE 60; RESP 18; TEMP 36.2; O2SAT 95
[2021-01-21] MEDS: amLODIPine BESYLATE 5 MG TABLET PO (08:05)
[2021-01-21] MEDS: DOCUSATE SODIUM 100 MG CAPSULE PO ×2 (08:05→19:09)
[2021-01-21] MEDS: PRAVASTATIN SODIUM 20 MG TABLET 40 MG PO (08:05)
[2021-01-21] MEDS: CEPHALEXIN 500 MG CAPSULE PO ×4 (08:05→21:57)
[2021-01-21 22:00] VITALS: BP 138/58; PULSE 69; RESP 18; TEMP 36.6; O2SAT 97
[2021-01-22] VITALS: BP 132/65; PULSE 72; RESP 20; TEMP 36.4; O2SAT 99
[2021-01-22 06:00] VITALS: BP 121/59; PULSE 65; RESP 18; TEMP 36.6; O2SAT 96
[2021-01-22] MEDS: HYOSCYAMINE SULFATE 0.125 MG TABLET SUBLINGUAL ×2 (06:17→20:44)
[2021-01-22] MEDS: amLODIPine BESYLATE 5 MG TABLET PO (09:30)
[2021-01-22] MEDS: CEPHALEXIN 500 MG CAPSULE PO ×4 (09:31→20:05)
[2021-01-22] MEDS: PRAVASTATIN SODIUM 20 MG TABLET 40 MG PO (09:31)
[2021-01-22] MEDS: DOCUSATE SODIUM 100 MG CAPSULE PO (09:33)
[2021-01-22 10:46] LABS: Hematocrit 28.5 % (42.0-52.0); Hemoglobin 9.1 g/dL (14.0-18.0); Mean Corpuscular HGB Conc 31.9 g/dl (32-36); Mean Corpuscular Hemoglobin 28.1 pg (26-34); Mean Platelet Volume 12.1 fl (7.4-10.4); Platelet Count Result 270 k/mm3 (150-375); Red Blood Count 3.24 M/mm3 (4.6-6.20); Red Cell Distribution Width 13.9 % (11.5-14.5); White Blood Count 10.6 K/mm3 (4.5-10.0)
[2021-01-22 10:59] LABS: Alanine Aminotransferase 16 U/L (4-50); Albumin Level 3.4 g/dL (3.5-5.1); Alkaline Phosphatase 68 U/L (38-126); Anion Gap 7 mmol/L (8-16); Aspartate Amino Transferase 24 U/L (17-59); Bilirubin,Total 0.3 mg/dL (0.2-1.3); Blood Urea Nitrogen 12 mg/dL (9-20); Calcium 8.7 mg/dL (8.4-10.2); Carbon Dioxide 28 mmol/L (22-30); Chloride 106 mmol/L (98-107); Estimated CRCL calculation 53 ml/min; Estimated Glomerular Filt Rate > 60; Glucose 134 mg/dL (75-110); Sodium 141 mmol/L (137-145)
--- NOTE | 2021-01-22 12:36 | WPDUROPN2 ---
Progress Note: A&P Assessment and Plan (1) BPH loc w urin obs/LUTS: Code(s): N40.1 - Benign prostatic hyperplasia with lower urinary tract symptoms Status: Acute Assessment and Plan: Keep CBI running overnight. Hemoglobin is stable. Possible stopping of CBI and voiding trial tomorrow. Subjective Subjective Date/Time Seen: 01/22/21 12:36 Had an increase in hematuria yesterday and was not able to go home as planned. CBI has been restarted. Exam Narrative: Exam Narrative: CBI running. Urine is light pink on CBI. Objective Data Vital Signs Vital Signs: Vital Signs - 24 hr 01/21/21 22:00 01/22/21 00:00 01/22/21 06:00 Temperature 36.6 C 36.4 C 36.6 C Pulse Rate 69 72 65 Respiratory Rate 18 20 18 Blood Pressure 138/58 L 132/65 121/59 L Pulse Oximetry 97 99 96 Intake/Output Intake/Output: Intake & Output 01/19/21 01/20/21 01/21/21 01/22/21 23:59 23:59 23:59 23:59 Intake Total 1280 2395 472 7728 Output Total 8550 3400 57617 800 [facility] -[phone] 340 Meds/Results Medications: Active Medications Generic Name Dose Route Start Last Admin Trade Name Freq PRN Reason Stop Dose Admin Hydrocodone Bitart/Acetaminophen 1 tab 01/19/21 15:31 Hydrocodone/Acetaminophen (*Crx) 5-325 Mg Tablet PO Q4H PRN Pain Rated 1-6 Amlodipine Besylate 5 mg 01/20/21 09:00 01/22/21 09:30 Amlodipine Besylate 5 Mg Tablet PO 5 mg DAILY MYRTLE Administration Cephalexin HCl 500 mg 01/20/21 13:00 01/22/21 09:31 Cephalexin 500 Mg Capsule PO 500 mg QID MYRTLE Administration Docusate Sodium 100 mg 01/19/21 17:00 01/22/21 09:33 Docusate Sodium 100 Mg Capsule PO 100 mg BID MYRTLE Administration Hyoscyamine 0.125 mg 01/19/21 15:31 01/22/21 06:17 Hyoscyamine Sulfate 0.125 Mg Tablet SUBLINGUAL 0.125 mg Q6H PRN Administration Bladder Spasm Morphine Sulfate 2 mg 01/19/21 15:31 01/19/21 18:37 Morphine Sulfate (*Crx) 2 Mg/Ml Inj IV PUSH 2 mg Q2H PRN Administration Pain Rated 7-10 Naloxone HCl 0.1 mg 01/19/21 15:31 Naloxone Hcl 0.4 Mg/Ml Vial IV PUSH Q2M PRN Opiate Reversal Ondansetron HCl 4 mg 01/19/21 15:31 Ondansetron Inj 4 Mg/2 Ml Vial IV PUSH Q12H PRN Nausea And Vomiting Pravastatin Sodium 40 mg 01/20/21 09:00 01/22/21 09:31 Pravastatin Sodium 20 Mg Tablet PO 40 mg QAM MYRTLE Administration Labs Labs: Laboratory Results - last 24 hr 01/22/21 01/22/21 10:25 10:25 WBC 10.6 H RBC 3.24 L Hgb 9.1 L Hct 28.5 L MCV 88.0 MCH 28.1 MCHC 31.9 L RDW 13.9 Plt Count 270 MPV 12.1 H Sodium 141 Potassium 4.0 Chloride 106 Carbon Dioxide 28 Anion Gap 7 L BUN 12 Creatinine 0.90 Estim Creat Clear Calc 53 Estimated GFR > 60 Glucose 134 H Calcium 8.7 Total Bilirubin 0.3 AST 24 ALT 16 Alkaline Phosphatase 68 Total Protein 6.0 L Albumin 3.4 L
[2021-01-22 16:00] VITALS: BP 126/60; PULSE 65; RESP 20; TEMP 35.9; O2SAT 98
--- NOTE | 2021-01-22 18:53 | PC.NURSE ---
General shift note 01/22. Cath had curtis draining pink urine at beginning of shift. At approx 0930 patient began saying that he was voiding. upon evaluation he was voiding around the palm cath. i then irrigated the cath with 50cc sterile saline, has immediate return of clots and dark red blood. CBI flow was increased and urine has eventually gotten urgent care physician assistant in [place] Dr. Marie was notified and came in to see patient. discharge plan was discontinued as patient needs to stay for continuing CBI. This evening he is in good spirits and has no c/o pain
[2021-01-22 22:00] VITALS: BP 149/68; PULSE 72; RESP 21; TEMP 36.4; O2SAT 100
[2021-01-23 02:00] VITALS: BP 123/57; PULSE 63; RESP 18; TEMP 36.2; O2SAT 96
[2021-01-23 06:00] VITALS: BP 119/58; PULSE 69; RESP 18; TEMP 36.1; O2SAT 97
--- NOTE | 2021-01-23 06:52 | WPDUROPN2 ---
Progress Note: A&P Assessment and Plan (1) BPH loc w urin obs/LUTS: Code(s): N40.1 - Benign prostatic hyperplasia with lower urinary tract symptoms Status: Acute Assessment and Plan: Catheter our for voiding trial today. Subjective Subjective Date/Time Seen: 01/23/21 06:52 Comfortable, urine clear Review of Systems Cardiovascular: Cardiovascular: Denies chest pain, Denies lightheadedness, Denies palpitations and Denies dyspnea Respiratory: Respiratory: Denies dyspnea Gastrointestinal: Gastrointestinal: Denies diarrhea, Denies nausea and Denies vomiting Genitourinary: Genitourinary: Denies hematuria and Denies dysuria Endocrine: Endocrine: Denies palpitations Exam Const: General: no acute distress Resp: Effort & Inspection: normal respiratory effort GI: Inspection: non-distended GI Palp: No abdominal tenderness and No Guarding due to palpation present (GI) Auscultation: normal bowel sounds Objective Data Vital Signs Vital Signs: Vital Signs - 24 hr 01/22/21 16:00 01/22/21 22:00 01/23/21 02:00 Temperature 96.7 F L 97.5 F L 97.1 F L Pulse Rate 65 72 63 Respiratory Rate 20 21 H 18 Blood Pressure 126/60 149/68 H 123/57 L Pulse Oximetry 98 100 96 Intake/Output Intake/Output: Intake & Output 01/20/21 01/21/21 01/22/21 01/23/21 23:59 23:59 23:59 23:59 Intake Total 0993 502 5765 Output Total 3400 76725 [id number] [facility]1820 -[id number] Meds/Results Medications: Active Medications Generic Name Dose Route Start Last Admin Trade Name Freq PRN Reason Stop Dose Admin Hydrocodone Bitart/Acetaminophen 1 tab 01/19/21 15:31 Hydrocodone/Acetaminophen (*Crx) 5-325 Mg Tablet PO Q4H PRN Pain Rated 1-6 Amlodipine Besylate 5 mg 01/20/21 09:00 01/22/21 09:30 Amlodipine Besylate 5 Mg Tablet PO 5 mg DAILY MYRTLE Administration Cephalexin HCl 500 mg 01/20/21 13:00 01/22/21 20:05 Cephalexin 500 Mg Capsule PO 500 mg QID MYRTLE Administration Docusate Sodium 100 mg 01/19/21 17:00 01/22/21 16:53 Docusate Sodium 100 Mg Capsule PO Not Given BID [facility] Hyoscyamine 0.125 mg 01/19/21 15:31 01/22/21 20:44 Hyoscyamine Sulfate 0.125 Mg Tablet SUBLINGUAL 0.125 mg Q6H PRN Administration Bladder Spasm Morphine Sulfate 2 mg 01/19/21 15:31 01/19/21 18:37 Morphine Sulfate (*Crx) 2 Mg/Ml Inj IV PUSH 2 mg Q2H PRN Administration Pain Rated 7-10 Naloxone HCl 0.1 mg 01/19/21 15:31 Naloxone Hcl 0.4 Mg/Ml Vial IV PUSH Q2M PRN Opiate Reversal Ondansetron HCl 4 mg 01/19/21 15:31 Ondansetron Inj 4 Mg/2 Ml Vial IV PUSH Q12H PRN Nausea And Vomiting Pravastatin Sodium 40 mg 01/20/21 09:00 01/22/21 09:31 Pravastatin Sodium 20 Mg Tablet PO 40 mg QAM MYRTLE Administration Labs Labs: Laboratory Results - last 24 hr 01/22/21 01/22/21 10:25 10:25 WBC 10.6 H RBC 3.24 L Hgb 9.1 L Hct 28.5 L MCV 88.0 MCH 28.1 MCHC 31.9 L RDW 13.9 Plt Count 270 MPV 12.1 H Sodium 141 Potassium 4.0 Chloride 106 Carbon Dioxide 28 Anion Gap 7 L BUN 12 Creatinine 0.90 Estim Creat Clear Calc 53 Estimated GFR > 60 Glucose 134 H Calcium 8.7 Total Bilirubin 0.3 AST 24 ALT 16 Alkaline Phosphatase 68 Total Protein 6.0 L Albumin 3.4 L
[2021-01-23] MEDS: amLODIPine BESYLATE 5 MG TABLET PO (08:03)
[2021-01-23] MEDS: PRAVASTATIN SODIUM 20 MG TABLET 40 MG PO (08:03)
[2021-01-23] MEDS: CEPHALEXIN 500 MG CAPSULE PO ×3 (08:03→17:10)
[2021-01-23 14:00] VITALS: BP 126/69; PULSE 93; RESP 16; TEMP 36.5; O2SAT 96
--- NOTE | 2021-01-23 16:41 | PM.DS ---
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 Urodynamics are consistent with obstruction with reasonable detrusor function. After discussion of options he elected for a TURP. He was admitted on the morning of this procedure which is undertaken with the technical difficulty. Postoperative course was prolonged because of ongoing urethral bleeding necessitating CBI for several days. On the morning of discharge urine is clear and he was given a voiding trial, which he passed well. At the time of discharge he was voiding freely was tolerating a diet. Time Spent with Patient Time attestation: Total time spent providing and/or coordinating discharge services: 20 min. Exam Const: General: no acute distress Resp: Effort & Inspection: normal respiratory effort GI: Inspection: non-distended GI Palp: No abdominal tenderness and No Guarding due to palpation present (GI) Auscultation: normal bowel sounds DS: Data Data Completed and Pending Pending studies at discharge: Pending at discharge 01/19/21 12:51 Surgical [PTH] Routine Discharge Plan Discharge Attending physician on discharge: Regino Hinds Discharging Clinician: Regino Hinds Anticipated Discharge Date/Time: 01/21/21 10:00 Patient Disposition: Home, Self-Care Activity: other - see discharge instructions Diet: regular Discharge Instructions: 1) Activity: No lifting/straining >15lbs. x2 weeks. 2) Diet: Resume normal pre-admission diet. 3) Follow-up: 01/23 @ 0800 for catheter removal. 4) Strickland catheter -> leg bag / large bag at night. Patient Instructions: Antibiotic Form, Continuous Bladder Irrigation (GEN) Stand Alone Forms: General Discharge Information Follow-up/Referrals: Regino Hinds MD [Physician] - Discharge Medications: New hydrocodone-acetaminophen 5-325 mg tablet 1 - 2 tablet PO Q6H PRN (Reason: pain) Qty: 20 RF: 0 sulfamethoxazole-trimethoprim 800-160 mg tablet 1 tablet PO Q12H Qty: 6 RF: 0 docusate sodium [Colace] 100 mg capsule 100 mg PO DAILY Qty: 30 RF: 0 Continued pravastatin 40 mg tablet 40 mg PO QAM RF: 0 amlodipine 5 mg tablet 5 mg PO DAILY RF: 0 Held omega 3-hcx-zxh-fish oil [Fish Oil] 1,000 mg (120 mg-180 mg) capsule 1 cap PO QAM RF: 0 Hold Instructions: Resume on 01/25/21. cyanocobalamin (vitamin B-12) 1,000 mcg capsule 1,000 mcg PO QAM RF: 0 Hold Instructions: Resume on 01/25/21. ascorbic acid (vitamin C) [Vitamin C] 1,000 mg Tablet 1 g PO DAILY RF: 0 Hold Instructions: Resume on 01/25/21. aspirin 81 mg Tablet,Delayed Release (Dr/Ec) 81 mg PO QAM RF: 0 Hold Instructions: Resume on 01/25/21. calcium carbonate [Calcium 600] 600 mg calcium (1,500 mg) Tablet 600 mg PO DAILY RF: 0 Hold Instructions: Resume on 01/25/21. rointrdqfazb-nskfsuka-clotnc Tablet 1 tablet PO DAILY RF: 0 Hold Instructions: Resume on 01/25/21. zinc 50 mg Capsule 50 mg PO DAILY RF: 0 Hold Instructions: Resume on 01/25/21. cholecalciferol (vitamin D3) 125 mcg (5,000 unit) Tablet 125 mcg PO QAM RF: 0 Hold Instructions: Resume on 01/25/21. Discontinued tamsulosin 0.4 mg Capsule 0.4 mg PO QAM Qty: 30 RF: 6 finasteride 5 mg Tablet 5 mg PO QAM RF: 0 Date of admission: 01/20/21 11:16 Primary Care Provider: Jared Wilkerson Admitting Provider
== END 2021-01-23 17:21 | disposition home or self-care (01) ==
LOC: ANHSURGERY 10-31 10:52 → ANH2MED 10-31 10:52
PROVIDERS: Urology; Admitting Provider Urology; PCP Internal Medicine; Visit Provider Urology
PROC: 0VT08ZZ Resection of Prostate, Via Natural or Artificial Opening Endoscopic (ICD-10-PCS; CPT 52601; principal; 2021-01-19 12:15)
DX: N40.1 Benign prostatic hyperplasia with lower urinary tract symptoms (principal); N13.30 Unspecified hydronephrosis; R33.8 Other retention of urine; I10 Essential (primary) hypertension; E78.5 Hyperlipidemia, unspecified
CPT/HCPCS: 52601; 36415; 80048; 80053; 85014; 85018; 85027; 88305; 93005; A9270; C9803; G0378; J0690; J2270; J2405; J2704; J3010; J7120; J7121; U0003; U0005

== ENCOUNTER 2022-02-07 08:00 | Day surgery (SDC) | payer MEDICARE, SELFPAY ==
[2022-02-02 13:00] VITALS: BMI 24.1
[2022-02-07 08:30] VITALS: BP 148/72; PULSE 74; RESP 20; TEMP 36.4; O2SAT 98
--- NOTE | 2022-02-07 08:57 | WPDHPUPDATE1 ---
History and Physical Update Update Date/Time: 02/07/22 08:57 History and Physical has been reviewed, including an updated exam of the patient. There are NO changes in the patient's condition. Risks, benefits, and alternatives have been discussed and questions answered. Patient agrees to proceed with procedure.
[2022-02-07 09:15] VITALS: BP 178/85; PULSE 56; RESP 20; O2SAT 95
[2022-02-07 09:25] VITALS: BP 157/72; PULSE 63; RESP 20; O2SAT 96
[2022-02-07 09:35] VITALS: BP 168/76; PULSE 64; RESP 20; O2SAT 96
[2022-02-07 09:45] VITALS: BP 152/62; PULSE 64; RESP 20; O2SAT 97
--- NOTE | 2022-02-07 09:54 | P.OP_ITS ---
Procedure Note - Detailed Date of Procedure 02/07/22 Pre-op Diagnosis Neck Mass Post-op Diagnosis Same Procedure Performed excision of 4 cm posterior neck mass Surgeon Armen Quintero, DO Anesthesia Local ( 1% lidocaine with epinephrine) Indications this is an 81-year-old man who presented with an enlarging mass on his posterior neck. He states that this started out very small, but over several years has increased in size. He denies any prior redness or drainage. He does has some discomfort when the area is pressed upon. The was found to have a 4 cm posterior neck mass could be a cyst or possible lipoma. Discussions were made with the patient about treatment options and decision was made to proceed with excision of 4 cm posterior neck mass. Findings The 4 cm neck mass was completely excised. This appeared to be a sebaceous cyst within the subcutaneous space. The mass was carefully completely excised and sent to the lab for pathology. No other subcutaneous abnormalities were noted. Description of Procedure Procedure as well as risks, benefits, alternatives were discussed with the patient. Written consent was obtained and placed in chart prior to procedure. Patient was brought back to surgical suite. He was placed prone on operating table. Time-out was done to confirm patient and procedure. His posterior neck region was prepped and draped in sterile fashion using chlorhexidine prep. 1% lidocaine with epinephrine was infiltrated locally around the mass. A 4 cm transverse elliptical incision was made encompassing the entire mass using 15 blade scalpel. The mass was sharply excised completely using a 15 blade scalpel. The mass was removed and sent to the lab for pathology. The wound bed was then inspected. Hemostasis was achieved with electrocautery. No other ab normalities were noted. The skin edges were then reapproximated using 4-0 nylon simple interrupted sutures. Bacitracin ointment was then applied followed by 4 x 4 gauze and tape. The patient was then transferred to recovery. Estimated Blood Loss 5 Pathology Yes ( 4 cm posterior neck mass) Complications No immediate complications Condition Stable Disposition Same day [facility] Billing Surgery - Charge Forward: Surgery Billing
[2022-02-07 09:55] VITALS: BP 144/96; PULSE 64; RESP 16; O2SAT 99
== END 2022-02-07 10:08 | disposition home or self-care (01) ==
PROVIDERS: PCP Internal Medicine; Visit Provider Surgery
PROC: (CPT 21552; principal; 2022-02-07 09:30)
DX: R22.1 Localized swelling, mass and lump, neck (principal)
CPT/HCPCS: 21552

== ENCOUNTER 2022-02-07 09:52 | Outpatient (NON) | payer MEDICARE, SELFPAY | END 2022-02-07 09:53 | disposition home or self-care (01) | PROVIDERS: PCP Internal Medicine; Visit Provider Surgery | DX: D17.0 Benign lipomatous neoplasm of skin and subcutaneous tissue of head, face and neck (principal) | CPT/HCPCS: 88304 ==

== ENCOUNTER 2024-04-16 11:29 | Outpatient (CLI) | payer MEDICARE, SELFPAY ==
--- NOTE | ~2024-04-16 | XR_ITS ---
XR hand LT 2V Ordering provider: Mariposa Arriaga APRN History: . M79.89 - Other specified soft tissue disorders SWELLING PAIN . Comparison: None. FINDINGS: BONES: No acute fracture or dislocation. JOINT SPACES: Narrowing of the proximal and distal interphalangeal joints. Narrowing of the scaphotra pezial joint. SOFT TISSUES: No definite abnormality. IMPRESSION: No acute osseous abnormality left hand. Polyarticular osteoarthritic changes. Reviewed, dictated and finalized at location A.
== END 2024-04-16 11:30 | disposition home or self-care (01) ==
LOC: ANHIMG 11:34
PROVIDERS: PCP Family Medicine; Visit Provider Nurse Practitioner Family
DX: M79.89 Other specified soft tissue disorders (principal); R23.8 Other skin changes; M19.042 Primary osteoarthritis, left hand
CPT/HCPCS: 73120

== ENCOUNTER 2024-05-12 17:48 | Emergency (ER) | payer MEDICARE, SELFPAY ==
--- NOTE | ~2024-05-12 | US_ITS ---
LEFT UPPER EXTREMITY VENOUS ULTRASOUND Ordering provider: Bob Hanson MD History: . left arm swelling . Comparison: None. FINDINGS: --JUGULAR: Patent and free of thrombus. Normal compressibility, phasic flow and augmentation. --SUBCLAVIAN: Patent and free of thrombus. Normal compressibility, phasic flow and augmentation. --AXILLARY: Patent and free of thrombus. Normal compressibility, phasic flow and augmentation. --BRACHIAL: Patent and free of thrombus. Normal compressibility, phasic flow and augmentation. --CEPHALIC: Patent and free of thrombus. Normal compressibility, phasic flow and augmentation. --BASILIC: Patent and free of thrombus. Normal compressibility, phasic flow and augmentation. --RADIAL: Patent and free of thrombus. Normal compressibility, phasic flow and augmentation. --ULNAR: Patent and free of thrombus. Normal compressibility, phasic flow and augmentation. IMPRESSION: Negative left upper extremity venous US. No deep vein thrombosis. Reviewed, dictated and finalized at location A.
[2024-05-12 17:49] VITALS: BP 176/88; PULSE 78; RESP 16; TEMP 36.4; O2SAT 99
[2024-05-12 21:59] VITALS: BP 176/71; PULSE 64; RESP 19; O2SAT 98
--- NOTE | 2024-05-12 21:59 | ED.GENADULT ---
HPI - General Adult General Chief complaint: Skin/Abscess/Foreign Body Stated complaint: skin infection Time Seen by Provider: 05/12/24 21:51 History of Present Illness HPI narrative: [age] old male presenting to the emergency department for evaluation for left hand swelling. Patient noticed swelling of the left hand approximately a month ago and was started on Keflex and for this improved. Patient's symptoms then began to worsen after stopping the Keflex so he was then started on clindamycin once again felt that his symptoms improved. Patient just recently stopped the clindamycin and now noticed he is having worsening swelling of the left arm again. Specifically today patient palpated had a bump the left lateral arm that he was concerned about. Patient has also noticed increased erythema swelling of the left hand. Patient denies any increased pain. Related Data Home Medications Medication Instructions Recorded Confirmed omega 8-aei-eio-fish oil 1,000 mg 1 cap PO QAM 07/15/19 04/16/24 (120 mg-180 mg) capsule (Fish Oil) ascorbic acid (vitamin C) 1,000 mg 1 g PO DAILY 01/09/21 04/16/24 tablet (Vitamin C) aspirin 81 mg tablet,delayed 81 mg PO QAM 01/09/21 04/16/24 release calcium carbonate (Calcium 600) 600 mg PO DAILY 01/09/21 04/16/24 cholecalciferol (vitamin D3) 125 125 mcg PO QAM 01/09/21 04/16/24 mcg (5,000 unit) tablet hznbyqcxlcuz-lmmdidzc-hubbrw tablet 1 tablet PO DAILY 01/09/21 04/16/24 zinc 50 mg capsule 50 mg PO DAILY 01/09/21 04/16/24 acetaminophen 650 mg 650 mg PO Q8H 09/25/23 04/16/24 tablet,extended release cinnamon bark 500 mg capsule 500 mg PO BID 09/25/23 04/16/24 (Cinnamon) Allergies Allergy/AdvReac Type Severity Reaction Status Date / Time No Known Allergies Allergy Verified 05/12/24 22:04 Review of Systems Review of Systems: All systems reviewed & are unremarkable except as noted in HPI and below PMFSH Past Medical History Medical History Diverticulitis Essential (primary) hypertension Mixed hyperlipidemia Surgical History Surgical History H/O excision of mass excision of 4cm posterior neck mass on 02/07/22. History of appendectomy (~11/2013) Perforated appendicitis with intraabdominal abscess requiring drain. History of facial surgery Reconstruction of numerous fractures sustained in a fall on the ice. History of hemorrhoidectomy Family History Family History Mother Cerebrovascular accident Father Family history of coronary artery disease, Onset Age: 87 Social History Social History Social History: Surrogate decision maker: Francisca Mcduffie, . Code status: Full code. Smoking status: Never smoker Second hand tobacco smoke exposure: No Alcohol intake: never Substance use: never Substance use type: does not use Living arrangements: with family Additional living arrangements comments: Patient lives in [place] with his . Occupation/Education: retired Additional occupation/education comments: Retired from [employer]. Gender identity (if verbalized by the patient): Male Spiritual care concerns: No Exam Narrative: APPEARANCE: Well appearing, no pain, no distress, well-nourished. HEAD: normocephalic, atraumatic. EYES: PERRLA/EOMI, conjunctivae clear. NOSE: Normal no drainage EARS:TMS clear with good light reflex. THROAT: Pharynx clear, no exudate. NECK: Supple. No adenopathy, no masses. RESPIRATORY: Airway patent, respirations nonlabored. Clear to auscultation bilaterally, no rales, rhonchi, wheezing. CARDIOVASCULAR: Regular rate and rhythm without murmurs rubs or gallops. ABDOMINAL: Soft, nontender, nondistended, normal bowel sounds MUSCULOSKELETAL: Moves all extremities. Strength/ROM intact, No edema, No calf
[2024-05-12 22:10] LABS: Basophils Percent Auto 0.4 % (0.2-1.2); Eosinophils Absolute Auto 0.2 K/mm3 (0-0.3); Eosinophils Percent Auto 1.4 % (0-4.4); Hematocrit 39.3 % (42.0-52.0); Hemoglobin 12.6 g/dL (14.0-18.0); Immature Granulocyte Absolute 0.05 K/mm3 (0.00-0.031); Immature Granulocyte Percent A 0.4 % (0-0.5); Lymphocytes Absolute Auto 4.36 K/mm3 (0.9-3.2); Lymphocytes Percent Auto 38.4 % (18.3-44.2); Mean Corpuscular HGB Conc 32.1 g/dl (32-36); Mean Corpuscular Hemoglobin 27.8 pg (26-34); Mean Corpuscular Volume 86.6 fl (80-100); Mean Platelet Volume 11.4 fl (7.4-10.4); Monocytes Absolute Auto 0.4 K/mm3 (0.1-0.6); Monocytes Percent Auto 3.8 % (2.6-8.5); Neutrophils Absolute Auto 6.3 K/mm3 (1.3-6.7); Neutrophils Percent Auto 55.6 % (45.5-73.1); Platelet Count Result 343 k/mm3 (150-375); Red Blood Count 4.54 M/mm3 (4.6-6.20); Red Cell Distribution Width 15.4 % (11.5-14.5); White Blood Count 11.4 K/mm3 (4.5-10.0)
[2024-05-12 22:20] LABS: Alanine Aminotransferase 22 U/L (6-50); Albumin Level 3.7 g/dL (3.5-5.1); Alkaline Phosphatase 92 U/L (38-126); Anion Gap 6 mmol/L (4-12); Aspartate Amino Transferase 25 U/L (17-59); Bilirubin,Total 0.4 mg/dL (0.2-1.3); Blood Urea Nitrogen 22 mg/dL (9-20); Calcium 8.6 mg/dL (8.4-10.2); Carbon Dioxide 26 mmol/L (22-30); Chloride 104 mmol/L (98-107); Estimated CRCL calculation 56 ml/min; Estimated Glomerular Filt Rate > 60; Glucose 99 mg/dL (65-110); Potassium 4.2 mmol/L (3.4-5.0); Sodium 136 mmol/L (137-145)
[2024-05-12] MEDS: SULFAMETHOXAZOLE/TRIMETHOPRIM 800/160 MG DS TABLET 1 TAB PO (23:40)
[2024-05-12 23:45] VITALS: BP 154/96; PULSE 67; RESP 19; O2SAT 99
== END 2024-05-12 23:46 | disposition home or self-care (01) ==
PROVIDERS: Emergency Provider Emergency Medicine; PCP Family Medicine
DX: L03.114 Cellulitis of left upper limb (principal); I10 Essential (primary) hypertension; E78.5 Hyperlipidemia, unspecified
CPT/HCPCS: 36415; 80053; 85025; 93971; 99284; A9270